=== PATIENT | male | born 1995 | race American Indian/Alaskan Native ===

== ENCOUNTER 2019-05-18 10:52 | Emergency (ER) | payer BC ==
--- NOTE | 2019-05-18 11:23 | Event Note ---
ED Screening Note ED Screening Note: cough x 1 week mucus production +rhinorrhea, +congestion +subjective fever no sick contacts has been taking nyquil no PMHx no allergies to meds +smoker occ drinker no drug use This initial assessment/diagnostic orders/clinical plan/treatment(s) is/are subject to change based on patients health status, clinical progression and re- assessment by fellow clinical providers in the ED. Further treatment and workup at subsequent clinical providers discretion. Patient/guardian urged not to elope from the ED as their condition may be serious if not clinically assessed and managed. Initial orders include: CXR
--- NOTE | 2019-05-18 12:28 | XRay Report ---
CHEST 2 VIEWS INDICATION / CLINICAL INFORMATION: cough x 1 week. COMPARISON: None available. FINDINGS: SUPPORT DEVICES: None. HEART / MEDIASTINUM: No significant abnormality. LUNGS / PLEURA: No significant pulmonary or pleural abnormality. No pneumothorax. ADDITIONAL FINDINGS: No significant additional findings. IMPRESSION: 1. No acute findings. Signer Name: Galileo Lundberg MD Signed: 05/18/2019 12:24 PM Workstation Name: [id number]
--- NOTE | 2019-05-18 12:42 | Emergency Department Report ---
- General Chief Complaint: Upper Respiratory Infection Stated Complaint: COLD SYMPTOMS Time Seen by Provider: 05/18/19 11:21 Source: patient Mode of arrival: Ambulatory Limitations: No Limitations - History of Present Illness Initial Comments: Patient is a 24-year-old Portuguese gentleman who is presenting with a productive cough for approximately one week. Patient states he has had a cough productive of yellow sputum. Patient also has some nasal congestion and mild facial discomfort. Patient's had subjective fevers and chills. Patient denies nausea vomiting or diarrhea. Patient is a smoker. Severity scale (0 -10): 5 Quality: aching Consistency: other (chest is uncomfortable with cough) Associated Symptoms: nasal congestion, sore throat, cough, chest pain, shortness of breath. denies: stiff neck, abdominal pain, nausea, vomiting, diarrhea, dysuria, rash, confusion, right sweats, weight loss, epistaxis, hoarseness, ear pain - Related Data Previous Rx's Medication Instructions Recorded Last Taken Type ALBUTEROL Inhaler (OR & NICU) 2 puff IH QID PRN #1 inhalation 05/18/19 Unknown Rx [ProAir HFA Inhaler] Amoxicillin/Potassium Clav 1 each PO BID #14 tablet 05/18/19 Unknown Rx [Augmentin 875-125 Tablet] Benzonatate [Tessalon Perles] 100 mg PO Q8HR #10 capsule 05/18/19 Unknown Rx Fluticasone [Flonase] 1 spray NS QDAY #1 bottle 05/18/19 Unknown Rx predniSONE [Deltasone] 20 mg PO QDAY #5 tab 05/18/19 Unknown Rx Allergies Allergy/AdvReac Type Severity Reaction Status Date / Time No Known Allergies Allergy Verified 02/25/17 23:41 ED Review of Systems ROS: Stated complaint: COLD SYMPTOMS Other details as noted in HPI Comment: All other systems reviewed and negative ED Past Medical Hx - Past Medical History Previous Medical History?: No Hx Congestive Heart Failure: No Hx Diabetes: No Hx Asthma: No Hx COPD: No - Surgical History Past Surgical History?: No - Social History Smoking Status: Current Every Day Smoker Substance Use Type: None - Medications Home Medications: Home Medications Medication Instructions Recorded Confirmed Last Taken Type ALBUTEROL Inhaler (OR & NICU) 2 puff IH QID PRN #1 inhalation 05/18/19 Unknown Rx [ProAir HFA Inhaler] Amoxicillin/Potassium Clav 1 each PO BID #14 tablet 05/18/19 Unknown Rx [Augmentin 875-125 Tablet] Benzonatate [Tessalon Perles] 100 mg PO Q8HR #10 capsule 05/18/19 Unknown Rx Fluticasone [Flonase] 1 spray NS QDAY #1 bottle 05/18/19 Unknown Rx predniSONE [Deltasone] 20 mg PO QDAY #5 tab 05/18/19 Unknown Rx ED Physical Exam - General Limitations: No Limitations General appearance: alert, in no apparent distress - Head Head exam: Present: atraumatic, normocephalic - Eye Eye exam: Present: normal appearance - ENT ENT exam: Present: mucous membranes moist - Neck Neck exam: Present: normal inspection - Respiratory Respiratory exam: Present: normal lung sounds bilaterally. Absent: respiratory distress, wheezes, rales, rhonchi, chest wall tenderness - Cardiovascular Cardiovascular Exam: Present: regular rate, normal rhythm. Absent: systolic murmur, diastolic murmur, rubs, gallop - GI/Abdominal GI/Abdominal exam: Present: soft, normal bowel sounds. Absent: distended, tenderness, guarding - Rectal Rectal exam: Present: deferred - Extremities Exam Extremities exam: Present: normal inspection - Back Exam Back exam: Present: normal inspection - Neurological Exam Neurological exam: Present: alert, oriented X3 - Psychiatric Psychiatric exam: Present: normal affect, normal mood - Skin Skin exam: Present: warm, dry, intact, normal color. Absent: rash ED Course Vital Signs 05/18/19 11:22 Temperature 98.3 F Pulse Rate 88 Respiratory 18 Rate Blood Pressure 124/67 O2 Sat by Pulse 98 Oximetry ED Medical Decision Making - Radiology Data Chest x-ray is within normal limits - Medical Decision Making Cause of the duration of symptoms and fact the patient is a smoker and has some facial discomfort indicative of a possible early sinus infection, the patient will be started on Augmentin and also given medications for symptomatic relief. Patient discharged home. - Differential Diagnosis pneumonia, upper respiratory infection, acute bronchitis, sinusitis Critical care attestation.: If time is entered above; I have spent that time in minutes in the direct care of this critically ill patient, excluding procedure time. ED Disposition Clinical Impression: Acute bronchitis Disposition: DC-01 TO HOME OR SELFCARE Is pt being admited?: No Does the pt Need Aspirin: No Condition: Stable Instructions: Acute Bronchitis (ED) Referrals: EDYTA SIFUENTES MD [Primary Care Provider] - 3-5 Days Time of Disposition: 12:41
[2019-05-18 12:46] VITALS: BP 121/71
== END 2019-05-18 12:45 | disposition home or self-care (01) ==
LOC: ED 10:52
DX: J20.9 Acute bronchitis, unspecified (principal); F17.200 Nicotine dependence, unspecified, uncomplicated
CPT/HCPCS: 71046; 99283

== ENCOUNTER 2019-11-03 23:14 | Emergency (ER) | payer BC | END 2019-11-04 03:17 | disposition home or self-care (01) | LOC: ED 23:14 | CPT/HCPCS: 99282 ==

== ENCOUNTER 2020-02-02 19:44 | Emergency (ER) | payer BC ==
--- NOTE | 2020-02-02 20:19 | Emergency Department Report ---
Chief Complaint: Upper Respiratory Infection Stated Complaint: COUGH Time Seen by Provider: 02/02/20 20:11 - HPI History of Present Illness: 24yo M states that he coughed once this morning while at work and was told that he has to go home. He reports that he has seasonal allergies and currently smokes. Pt denies travel outside of the [place] in the past 14 days, and close contact with a confirmed COVID-19 patient. - ROS Review of Systems: ALL systems reviewed and are WNL - Exam Physical Exam: HEENT-WNL Heart-WNL Lungs WNL GI- WNL Neuro-WNL Psych-WNL MSE screening note: Focused history and physical exam performed. Due to findings the following was ordered: Pt was explained that he is in a low risk category for COVID-19 suspicion. He was instructed to return to daily activities and follow current COVID-19 guidelines. ED Medical Decision Making - Medical Decision Making Pt was explained that he is in a low risk category for COVID-19 suspicion. He was instructed to return to daily activities and follow current COVID-19 guidelines. ED Disposition for MSE Clinical Impression: Cough Disposition: MED SCREENING EXAM-LEFT Is pt being admited?: No Does the pt Need Aspirin: No Condition: Stable Additional Instructions: Pt was explained that he is in a low risk category for COVID-19 suspicion. He was instructed to return to daily activities and follow current COVID-19 guidelines. Time of Disposition: 20:19
[2020-02-02 20:46] VITALS: BP 118/68
== END 2020-02-02 20:44 | disposition left against medical advice (07) ==
LOC: ED 19:44
DX: R05 Cough (principal)
CPT/HCPCS: 99282